=== PATIENT | male | born 1965 | race African-American/Black ===

== ENCOUNTER 2023-05-05 09:00 | Emergency (ER) | payer BC, SELFPAY ==
--- NOTE | ~2023-05-05 | CT_ITS ---
EXAMINATION: CT abdomen pelvis w con DATE: 05/05/2023 12:35 INDICATION: Left lower quadrant tenderness, bloating TECHNIQUE: Computed tomography (CT) of the abdomen and pelvis was performed with 100 CC Omnipaque 350 intravenous contrast. Automated exposure control and iterative reconstruction technique were employe d. Exam dose: 710.99 mGy-cm total exam DLP. COMPARISON: None. FINDINGS: The lung bases are clear. Normal heart size. No pericardial or pleural effusion. Diffuse hepatic steatosis. No hepatic, splenic, pancreatic or right adrenal space-occupying mass les ion. Probable small left adrenal adenoma. Numerous bilateral renal cysts Approximately 1.7 mm nonobstructing lower pole left renal calculus. No other urinary tract calculus o r hydroureteronephrosis. Normal caliber of the abdominal aorta. No intraperitoneal or retroperitoneal or pelvic mass lesion or adenopathy or ascites. Normal appendix. There is a prominent of fecal material in the rectum and colon. There are are some fluid levels in nondilated small bowel segments in the left lower quadrant which m ay represent mild adynamic ileus or enteritis. No surrounding inflammation or ascites No bowel obstru ction or bowel wall thickening is noted. Small fat-containing umbilical hernia and probable small fat-containing right inguinal hernia. No suspicious osteolytic or osteoblastic lesions. IMPRESSION: Left lower quadrant small bowel air-fluid levels without abnormal dilatation or bowel wa ll thickening; consider enteritis, mild adynamic ileus Normal appendix Prominent of fecal material in the rectum and colon; no bowel obstruction or free air Bilateral renal cysts Hepatic steatosis Reviewed, dictated and finalized at [facility]. Reviewed, dictated and finalized at [facility]. IMPRESSION: Left lower quadrant small bowel air-fluid levels without abnormal dilatation or bowel wall thickening; consider enteritis, mild adynamic ileus Normal appendix Prominent of fecal material in the rectum and colon; no bowel obstruction or fr ee air Bilateral renal cysts Hepatic steatosis
[2023-05-05 09:54] VITALS: BP 135/76; PULSE 111; RESP 20; TEMP 36.6; O2SAT 100
[2023-05-05 10:12] LABS: Eosinophils Absolute Auto 0.1 K/mm3 (0-0.3); Eosinophils Percent Auto 1.8 % (0-4.4); Hematocrit 41.8 % (42.0-52.0); Immature Granulocyte Absolute 0.01 K/mm3 (0.00-0.031); Immature Granulocyte Percent A 0.4 % (0-0.5); Lymphocytes Absolute Auto 0.78 K/mm3 (0.9-3.2); Lymphocytes Percent Auto 28.2 % (18.3-44.2); Mean Corpuscular HGB Conc 31.1 g/dl (32-36); Mean Corpuscular Volume 99.8 fl (80-100); Mean Platelet Volume 9.4 fl (7.4-10.4); Monocytes Absolute Auto 0.4 K/mm3 (0.1-0.6); Monocytes Percent Auto 14.8 % (2.6-8.5); Neutrophils Absolute Auto 1.5 K/mm3 (1.3-6.7); Neutrophils Percent Auto 54.8 % (45.5-73.1); Platelet Count Result 170 k/mm3 (150-375); Red Blood Count 4.19 M/mm3 (4.6-6.20); Red Cell Distribution Width 13.7 % (11.5-14.5); White Blood Count 2.8 K/mm3 (4.5-10.0)
[2023-05-05 10:17] LABS: Appearance Urine Clear (Clear); Bilirubin Urine Negative (Negative); Blood Urine Negative (Negative); Color Urine Yellow (Yellow); Glucose Urine UA Negative (Negative); Ketones Urine Negative (Negative); Leukocyte Esterase Ur Negative LEU/UL (Negative); Nitrate Urine Negative (Negative); Protein Urine Negative (Negative); Specific Grav Ur 1.007 (1.001-1.035); Urobilinogen Urine 0.2 mg/dL (<2.0)
[2023-05-05 10:21] LABS: Add Urine Microscopic? NO
[2023-05-05 10:23] LABS: Alanine Aminotransferase 41 U/L (6-50); Albumin Level 3.7 g/dL (3.5-5.1); Alkaline Phosphatase 75 U/L (38-126); Anion Gap 4 mmol/L (8-16); Aspartate Amino Transferase 42 U/L (17-59); Bilirubin,Total 0.4 mg/dL (0.2-1.3); Blood Urea Nitrogen 6 mg/dL (9-20); Calcium 8.3 mg/dL (8.4-10.2); Carbon Dioxide 31 mmol/L (22-30); Chloride 105 mmol/L (98-107); Estimated CRCL calculation 116 ml/min; Estimated Glomerular Filt Rate > 60; Glucose 115 mg/dL (65-110); Lipase 286 U/L (23-300); Potassium 4.3 mmol/L (3.4-5.0); Sodium 140 mmol/L (137-145)
[2023-05-05 12:02] VITALS: PULSE 96; RESP 21
[2023-05-05 12:03] VITALS: BP 136/86; PULSE 96; RESP 20; O2SAT 98
--- NOTE | 2023-05-05 12:06 | ED.ABDPAIN ---
HPI - Abdominal Pain General Chief Complaint: Abdominal Pain Stated Complaint: abd pain Time Seen by Provider: 05/05/23 11:59 History of Present Illness HPI narrative: Patient is a 57-year-old male presenting with abdominal pain. Patient states that for the last 3 to 4 days he has had lower abdominal pain that goes into his back. Worse on the left side. Associated with decreased appetite but no vomiting. Had a bowel movement about a day ago, states it was normal. States that his urine has been darker than normal but denies dysuria. No fevers, headache, chest pain, cough, shortness of breath. Related Data Allergies Allergy/AdvReac Type Severity Reaction Status Date / Time No Known Allergies Allergy Verified 05/05/23 10:02 Review of Systems Review of Systems: All systems reviewed & are unremarkable except as noted in HPI and below Exam Narrative: GENERAL: Well-appearing, in no acute distress, pleasant and cooperative HEAD: Normocephalic, atraumatic. EYES: PERRLA and EOMI. ENT: Mucous membranes tacky NECK: Supple. CHEST: No respiratory distress. Scattered expiratory wheezing HEART: Regular rate and rhythm ABDOMEN: Soft, + left lower quadrant tenderness, no guarding or rebound EXTREMITIES: Normal range of motion. No edema. SKIN: Warm, dry, no rash. NEURO: No focal deficits. Alert and oriented x3. PSYCH: Normal mood and affect. Course Vital Signs Vital signs: Vital Signs Temperature 98 F 05/05/23 09:54 Pulse Rate 111 H 05/05/23 09:54 Respiratory Rate 20 05/05/23 09:54 Blood Pressure 135/76 05/05/23 09:54 Pulse Oximetry 100 05/05/23 09:54 Oxygen Delivery Room Air 05/05/23 09:54 Temperature 98 F 05/05/23 09:54 Pulse Rate 86 05/05/23 13:54 Respiratory Rate 18 05/05/23 13:54 Blood Pressure 136/91 H 05/05/23 13:54 Pulse Oximetry 99 05/05/23 13:54 Oxygen Delivery Room Air 05/05/23 09:54 MDM - Abdominal Pain MDM Narrative Medical decision making narrative: 57-year-old male presenting with several days of lower abdominal pain that radiates into his lower back. Blood work with mild leukopenia. UA unremarkable. CT abdomen pelvis with constipation as well as possible adynamic ileus. On reevaluation, the patient is sleeping comfortably. States that he feels hungry. Feels comfortable going back to [place] where he is being treated for alcohol withdrawal. Vital signs here remained stable, no evidence of active withdrawal at this time. We will start him on daily MiraLAX, advise close PCP follow-up. Appropriate return precautions given. Discharged in stable condition. Differential Diagnosis Differential diagnosis: Likely abdominal pain, calculus of kidney, constipation, diverticulitis, gastroenteritis, pancreatitis and small bowel obstruction Medical Records Attestation: I reviewed the patient's medical records. Lab Data Attestation: I reviewed the patient's lab results. 05/05/23 10:06 05/05/23 10:06 Labs: Lab Results 05/05/23 05/05/23 Range/Units 10:06 10:09 WBC 2.8 L (4.5-10.0) K/mm3 RBC 4.19 L (4.6-6.20) M/mm3 Hgb 13.0 L (14.0-18.0) g/dL Hct 41.8 L (42.0-52.0) % MCV 99.8 (80-100) fl MCH 31.0 (26-34) pg MCHC 31.1 L (32-36) g/dl RDW 13.7 (11.5-14.5) % Plt Count 170 (150-375) k/mm3 MPV 9.4 (7.4-10.4) fl Immature Gran % (Auto) 0.4 (0-0.5) % Neut % (Auto) 54.8 (45.5-73.1) % Lymph % (Auto) 28.2 (18.3-44.2) % Ness % (Auto) 14.8 H (2.6-8.5) % Eos % (Auto) 1.8 (0-4.4) % Baso % (Auto) 0.0 L (0.2-1.2) % Lymph # (Auto) 0.78 L (0.9-3.2) K/mm3 Ness # (Auto) 0.4 (0.1-0.6) K/mm3 Eos # (Auto) 0.1 (0-0.3) K/mm3 Baso # (Auto) 0.0 (0.0-0.1) K/mm3 Abs Immat Gran (auto) 0.01 (0.00-0.031) K/mm3 Absolute Neuts (auto) 1.5 (1.3-6.7) K/mm3 Absolute Nucleated RBC 0.0 (0.0-0.012) K/mm3 Nucleated RBC % 0.0 (0.0-0.2) % Sodium 140 (137-145) mmol/L Potassium
[2023-05-05] MEDS: SODIUM CHLORIDE 0.9% IV 1,000 ML 999 ML IV CONT (12:15)
--- NOTE | 2023-05-05 12:35 | PC.NURSE ---
pt off floor to CT @[phone] and back @[phone]
--- NOTE | 2023-05-05 13:34 | PC.NURSE ---
Phylicia from [facility] called @[phone] to give report and get an update on pt status. phylicia states that pt is on day 2 of alcohol withdraw, so [facility] assessments will begin now. PH# [phone]
--- NOTE | 2023-05-05 13:43 | PC.NURSE ---
called Phylicia from [phone] to request a ride for pt discharge.
[2023-05-05 13:54] VITALS: BP 136/91; PULSE 86; RESP 18; O2SAT 99
== END 2023-05-05 13:56 | disposition home or self-care (01) ==
PROVIDERS: Emergency Medicine; Emergency Provider Emergency Medicine
DX: K59.00 Constipation, unspecified (principal)
CPT/HCPCS: 36415; 74177; 80053; 81003; 83690; 85025; 96360; 99284; J7030; Q9967